=== PATIENT | male | born 1990 ===

== ENCOUNTER 2024-10-20 23:58 | Inpatient (IN) | payer OTHER ==
[~2024-10-20] VITALS: Ht 167.6 cm; Wt 70.8 kg
[2024-10-21 01:03] LABS: BASOPHILS % (AUTO) 0.4 % (0.0-2.0); EOSINOPHILS % (AUTO) 0.5 % (1.0-6.0); HEMATOCRIT 41.1 % (41-53); HEMOGLOBIN 14.4 g/dL (13.5-17.5); LYMPHOCYTES # (AUTO) 1.4 K/uL (1.0-4.8); MEAN CORPUSCULAR HEMOGLOBIN 31.7 pg (26.0-34.0); MEAN CORPUSCULAR HGB CONC 35.1 G/dL (31.0-37.0); MEAN CORPUSCULAR VOLUME 90 fL (80-100); MONOCYTES # (AUTO) 0.8 K/uL (0.1-1.0); MONOCYTES % (AUTO) 11.2 % (2.0-9.0); NEUTROPHILS # (AUTO) 4.8 K/uL (1.8-7.7); NEUTROPHILS % (AUTO) 67.9 % (40.0-70.0); PLATELET COUNT (AUTO) 186 K/uL (150-450); RED BLOOD CELL COUNT(AUTO) 4.54 MIL/uL (4.50-5.90); RED CELL DISTRIBUTION WIDTH 12.6 % (11.5-14.5); WHITE BLOOD COUNT (AUTO) 7.1 K/uL (4.5-11.0)
[2024-10-21 01:16] LABS: LACTIC ACID 0.8 mmol/L (0.4-2.0)
[2024-10-21 01:20] LABS: ANION GAP 6 mmol/L (8-16); CALCIUM, TOTAL 8.9 mg/dL (8.8-10.5); CARBON DIOXIDE 32 mmol/L (22-29); CHLORIDE 98 mmol/L (98-107); CREATININE 0.91 mg/dL (0.60-1.30); GLOMERULAR FILTR. RATE CALC > 60 mL/min (>60); GLUCOSE,RANDOM 105 mg/dL (70-110); POTASSIUM 4.2 mmol/L (3.5-5.1); SODIUM SERUM 136 mmol/L (136-145); UREA NITROGEN, BLOOD 11 mg/dL (7-18)
[2024-10-21] MEDS ORDERED: ONDANSETRON HCL 4 MG/2 ML VIAL IVP PRN (01:45)
[2024-10-21] MEDS: VANCOMYCIN 1.25 GM/WATER(PEG) 250 ML IV ONE (01:47)
[2024-10-21] MEDS: LIDOCAINE 1% 10 ML VIAL SQ ONE (01:47)
[2024-10-21] MEDS: BACITRACIN 0.9 GM PACKET OINTMENT TP ONE (01:47)
[2024-10-21 05:21] VITALS: BP 119/60; PULSE 86; RESP 16; TEMP 99.1; O2SAT 97
[2024-10-21] MEDS: ACETAMINOPHEN 325 MG TABLET PO PRN (05:21)
[2024-10-21] MEDS ORDERED: INFLUENZA VIRUS VACCINE TVS (6MO+) 2024-25/PF 45 MCG/0.5 ML SYRINGE IM. ONE (06:30)
[2024-10-21 08:33] VITALS: BP 111/71; PULSE 70; RESP 18; TEMP 98.3; O2SAT 100
[2024-10-21] MEDS: HEPARIN SODIUM,PORCINE 5,000 UNITS/ML VIAL SQ SCH (08:38)
[2024-10-21] MEDS: VANCOMYCIN HCL 1 GM/D5% WATER 200 ML IV SCH (08:38)
[2024-10-21] MEDS ORDERED: SODIUM CHLORIDE 0.9% 250 ML IV ONE (09:25)
[2024-10-21 20:05] VITALS: BP 103/61; PULSE 75; RESP 18; TEMP 99.3; O2SAT 97
[2024-10-22 05:00] VITALS: BP 112/61; PULSE 65; RESP 18; TEMP 97.9; O2SAT 95
[2024-10-22 06:47] LABS: BASOPHILS % (AUTO) 0.4 % (0.0-2.0); EOSINOPHILS % (AUTO) 1.9 % (1.0-6.0); HEMATOCRIT 38.2 % (41-53); HEMOGLOBIN 13.3 g/dL (13.5-17.5); LYMPHOCYTES # (AUTO) 1.6 K/uL (1.0-4.8); LYMPHOCYTES % (AUTO) 28.3 % (22.0-44.0); MEAN CORPUSCULAR HEMOGLOBIN 31.5 pg (26.0-34.0); MEAN CORPUSCULAR HGB CONC 34.9 G/dL (31.0-37.0); MEAN CORPUSCULAR VOLUME 90 fL (80-100); MONOCYTES # (AUTO) 0.8 K/uL (0.1-1.0); MONOCYTES % (AUTO) 14.5 % (2.0-9.0); NEUTROPHILS # (AUTO) 3.1 K/uL (1.8-7.7); NEUTROPHILS % (AUTO) 54.9 % (40.0-70.0); PLATELET COUNT (AUTO) 180 K/uL (150-450); RED BLOOD CELL COUNT(AUTO) 4.23 MIL/uL (4.50-5.90); RED CELL DISTRIBUTION WIDTH 12.3 % (11.5-14.5); WHITE BLOOD COUNT (AUTO) 5.7 K/uL (4.5-11.0)
[2024-10-22 07:07] LABS: HEPATITIS C AB (EIA) Non Reactive (Non Reactive)
[2024-10-22 07:19] LABS: ANION GAP 2 mmol/L (8-16); CALCIUM, TOTAL 8.9 mg/dL (8.8-10.5); CARBON DIOXIDE 32 mmol/L (22-29); CHLORIDE 101 mmol/L (98-107); CREATININE 0.97 mg/dL (0.60-1.30); GLOMERULAR FILTR. RATE CALC > 60 mL/min (>60); GLUCOSE,RANDOM 105 mg/dL (70-110); SODIUM SERUM 135 mmol/L (136-145); UREA NITROGEN, BLOOD 8 mg/dL (7-18); VANCOMYCIN,RANDOM 15.1 mcg/mL (25.0-50.0)
[2024-10-22 10:04] VITALS: BP 104/56; PULSE 60; RESP 18; TEMP 98.1; O2SAT 98
[2024-10-22] MEDS ORDERED: IOHEXOL 350 MG/ML 100 ML VIAL ONE (13:26)
[2024-10-22] MEDS ORDERED: SODIUM CHLORIDE 0.9% 100 ML ONE (13:26)
[2024-10-22 21:00] VITALS: BP 108/62; PULSE 68; RESP 18; TEMP 98.4; O2SAT 97
[2024-10-23 06:13] VITALS: BP 118/72; PULSE 67; RESP 18; TEMP 98.2; O2SAT 98
[2024-10-23 06:52] LABS: ANION GAP 2 mmol/L (8-16); CALCIUM, TOTAL 8.9 mg/dL (8.8-10.5); CARBON DIOXIDE 32 mmol/L (22-29); CHLORIDE 102 mmol/L (98-107); CREATININE 0.85 mg/dL (0.60-1.30); GLOMERULAR FILTR. RATE CALC > 60 mL/min (>60); GLUCOSE,RANDOM 98 mg/dL (70-110); POTASSIUM 3.8 mmol/L (3.5-5.1); SODIUM SERUM 135 mmol/L (136-145); UREA NITROGEN, BLOOD 10 mg/dL (7-18)
[2024-10-23 07:40] VITALS: BP 110/61; PULSE 66; RESP 18; TEMP 97.7; O2SAT 98
[2024-10-23 20:38] VITALS: BP 112/58; PULSE 72; RESP 18; TEMP 98.3; O2SAT 98
[2024-10-24 04:27] VITALS: BP 109/64; PULSE 61; RESP 20; TEMP 98; O2SAT 98
[2024-10-24 07:29] LABS: ANION GAP 6 mmol/L (8-16); CALCIUM, TOTAL 8.8 mg/dL (8.8-10.5); CARBON DIOXIDE 30 mmol/L (22-29); CHLORIDE 103 mmol/L (98-107); CREATININE 0.82 mg/dL (0.60-1.30); GLOMERULAR FILTR. RATE CALC > 60 mL/min (>60); GLUCOSE,RANDOM 94 mg/dL (70-110); POTASSIUM 3.8 mmol/L (3.5-5.1); SODIUM SERUM 139 mmol/L (136-145); UREA NITROGEN, BLOOD 12 mg/dL (7-18)
[2024-10-24 08:35] VITALS: BP 105/67; PULSE 61; RESP 18; TEMP 97.7; O2SAT 98
[2024-10-24] MEDS ORDERED: SODIUM CHLORIDE 0.9% 250 ML IV ONE (08:57)
[2024-10-24 19:30] VITALS: BP 124/65; PULSE 79; RESP 18; TEMP 98.7; O2SAT 97
[2024-10-25 05:03] VITALS: BP 109/61; PULSE 60; RESP 18; TEMP 97.8; O2SAT 97
[2024-10-25 06:42] LABS: ANION GAP 4 mmol/L (8-16); CALCIUM, TOTAL 8.9 mg/dL (8.8-10.5); CARBON DIOXIDE 32 mmol/L (22-29); CHLORIDE 104 mmol/L (98-107); CREATININE 0.89 mg/dL (0.60-1.30); GLOMERULAR FILTR. RATE CALC > 60 mL/min (>60); GLUCOSE,RANDOM 96 mg/dL (70-110); POTASSIUM 3.7 mmol/L (3.5-5.1); SODIUM SERUM 140 mmol/L (136-145); UREA NITROGEN, BLOOD 13 mg/dL (7-18); VANCOMYCIN,RANDOM 19.3 mcg/mL (25.0-50.0)
[2024-10-25 12:17] VITALS: BP 116/67; PULSE 62; RESP 19; TEMP 97.7; O2SAT 98
[2024-10-25] MEDS ORDERED: DOXY-354 PO (14:05)
[2024-10-25] MEDS ORDERED: VANCOMYCIN 1.25 GM/WATER(PEG) 250 ML IV SCH (20:00)
== END 2024-10-25 17:35 | DRG 603 ==
LOC: EMS 23:58 → EDH 10-21 01:33 → 6S 10-21 05:00
PROVIDERS: ADMIT Internal Medicine; ATTEND Internal Medicine
PROC: 0H98XZZ Drainage of Buttock Skin, External Approach (ICD-10-PCS; principal; 2024-10-21)
DX: L03.317 Cellulitis of buttock (principal); E87.3 Alkalosis; L02.416 Cutaneous abscess of left lower limb; L02.31 Cutaneous abscess of buttock; R61 Generalized hyperhidrosis; Z79.899 Other long term (current) drug therapy
CPT/HCPCS: 10060; 72193; 80048; 80202; 83605; 83735; 85025; 86803; 87040; 87070; 87186; 87205; 87340; 96365; 99285; J1644; J3370; J3490; J7050